=== PATIENT | male | born 1975 | race Caucasian/White ===

== ENCOUNTER 2025-03-10 15:57 | Outpatient (CLI) | payer OTHER | END 2025-03-10 15:58 | disposition home or self-care (01) | LOC: BICRAD 15:57 | PROVIDERS: ATTEND Nurse Practitioner Family | DX: M54.50 Low back pain, unspecified (principal); M47.816 Spondylosis without myelopathy or radiculopathy, lumbar region | CPT/HCPCS: 72110 ==